=== PATIENT | male | born 1975 | race Caucasian/White ===

== ENCOUNTER 2020-07-18 08:58 | Emergency (ER) | payer BC, SELFPAY ==
[2020-07-18 09:23] VITALS: BP 122/76; PULSE 64; RESP 16; TEMP 36.8; O2SAT 98; BMI 31.6
--- NOTE | 2020-07-18 09:27 | HMH.EDUTC ---
[facility] [place] Disposition Clinical Impression: Encounter for laboratory testing for COVID-19 virus Sinusitis Qualifiers: Sinusitis location: unspecified location Chronicity: unspecified Qualified Code(s): J32.9 - Chronic sinusitis, unspecified Disposition: Home, Self-Care Condition on Discharge: Good Instructions: Sinusitis, DI for Sinusitis, Methylprednisolone, Azithromycin, Preventing the Spread of Coronavirus Discharge Instructions Additional Instructions: *Monitor Temp, Over the counter Motrin or Tylenol as directed/as needed Tylenol every 4 hours and Motrin every 6 hours (as long as your family doctor has told you that you can take it) for fever or pain. and straight to ER if unable to lower temp less than 101.0 after medication given *Warm salt water gargles may help to soothe the throat *Throat Lozenges *Warm fluids like tea with honey may help to soothe the throat *Sleep elevated *Humidifier/Vaporizer *Flonase 2 sprays in each nostril daily but be aware that it may take 2-3 days before you notice improvement Follow up IMMEDIATELY for new or worsening symptoms or no Noticeable improvement over the next 48-72 hours. 911 for difficulty breathing or swallowing You was tested for today for COVID19 your test result should be back later this evening or tomorrow, you may call back later this evening or tomorrow to see if your test results are back and the result You was given a handout with instructions for Self Quarantine and Self isolation for while you wait on test results and what to do if they are positive Prescriptions: Fluticasone Propionate [Flonase 50mcg nasal spray 16gm] 1 spr NS DAILY #1 bottle Transmission Status: Received by Next audience methylPREDNISolone [Medrol 4mg tab] 4 mg PO DIRECTED #21 tab Transmission Status: Received by Next audience Azithromycin [Z-Xu 250mg Tab] 250 mg PO DIRECTED #6 tab Transmission Status: Received by Next audience Referrals: Karen Barr [Primary Care Provider] - As needed Forms: Work/School Release Medical Decision Making - Bassem Inquiry Pt receiving controlled substance: No Bassem was queried for this patient: No Vital Signs: 07/18/20 09:23 07/18/20 09:43 Temperature 98.2 F 98.2 F Temperature Source Oral Pulse Rate 64 Pulse Rate [Radial] 64 Respiratory Rate 16 16 Blood Pressure 122/76 Blood Pressure [Right Arm] 122/76 Blood Pressure Mean [Right Arm] 91 Blood Pressure Source [Right Arm] Automatic Cuff Blood Pressure Position [Right Arm] Sitting 02 Sat by Pulse Oximetry 98 Oxygen Delivery Method Room Air - Lab Data Lab results reviewed: Yes: I reviewed the patient's lab results. Lab Results 07/18/20 09:28: Influenza Type A Ag Negative, Influenza Type B Ag Negative Orders (Tests/Meds): ORDERS Category Date Time Status Covid-19 Nasal PCR ([facility]) Routine Lab 07/18/20 09:15 Received [facility] [place] HPI - General Stated complaint: covid test Time Seen by Provider: 07/18/20 09:27 Mode of Arrival: Ambulatory Source of Information: Patient Limitations: No Limitations Description of Symptoms (Recalled from Triage Doc. by RN): COVID- Sat NOBLE started, swimmy headed, hot flashes, body aches, SOB. HEENT Symptoms (Recalled from RN notes): Yes Resp Symptoms (Recalled from RN notes): No Skin Symptoms (Recalled from RN notes): No MS Symptoms (Recalled from RN notes): No Functional Status (Recalled from RN notes): wnl - History of Present Illness Provider Complaint: Patient states that he started getting sick on Saturday State that he struck with headache on Saturday with pressure like feeling behind his eyes, headache, body aches and chills States that he had some nausea over the weekend but no vomiting and today he felt like he couldnt get a good breath. States that when he leans over he has pressure like feeling in his sinuses and makes his head feel swimmy - Related Data Previous Rx's Medication Instructions Recorded
[2020-07-18 09:35] LABS: UTC Influenza A Antigen Negative (Negative)
[2020-07-18 09:37] LABS: UTC Influenza B Antigen Negative (Negative)
[2020-07-18 09:43] VITALS: BP 122/76; PULSE 64; RESP 16; TEMP 36.8; O2SAT 98
== END 2020-07-18 09:46 | disposition home or self-care (01) ==
PROVIDERS: Emergency Provider Nurse Practitioner; PCP Nurse Practitioner Family
DX: Z20.828 Contact with and (suspected) exposure to other viral communicable diseases (principal); J32.9 Chronic sinusitis, unspecified; F17.210 Nicotine dependence, cigarettes, uncomplicated
CPT/HCPCS: 87804; 99201; U0003

== ENCOUNTER 2020-09-18 13:50 | Emergency (ER) | payer SELFPAY ==
[2020-09-18 15:28] VITALS: BP 124/70; PULSE 70; RESP 18; TEMP 36.7; O2SAT 98; BMI 32.5
--- NOTE | 2020-09-18 16:05 | HMH.EDUTC ---
[facility] [place] Disposition Clinical Impression: Low back pain Qualifiers: Chronicity: unspecified Back pain laterality: right Sciatica presence: without sciatica Qualified Code(s): M54.5 - Low back pain Disposition: Home, Self-Care Condition on Discharge: Good Instructions: Low Back Pain, DI for Low Back Pain, DI for Muscle Spasm Additional Instructions: *Etodolac kaushik 6 hours with meal as needed for pain/inflammation *Remember you had a Toradol shot in the clinic today, which is similar to Etodolac do not start until late tonight around 12am *Not additional anti-inflammatory like motrin, aleve, advil with the above amount of Etodolac. You can still take Tylenol every 4 hours as needed if you need something else for pain *Ice 20 minutes every 2 hours for the first 48 hours after the initial injury followed by moist heat every 20 minutes 3-4 times a day to affected area *Muscle relaxer every 8 hours as needed for muscle spasms but remember, it WILL cause drowsiness You cannot take it and drive, operate machinery or care for small children. *Keep this area active, no movement leads to more stiffness, However take it easy and avoid heavy lifting pushing or pulling *Follow up with you family doctor if no improvement for further treatment Prescriptions: Etodolac [Etodolac 200mg Cap*] 200 mg PO Q6H PRN #20 cap PRN Reason: Moderate Pain Transmission Status: Received by [facility] #[id number] Cyclobenzaprine HCl [Flexeril 10mg tablet] 10 mg PO TID PRN #15 tab PRN Reason: Muscle Spasm Transmission Status: Received by [facility] #[id number] Referrals: Karen Barr [Primary Care Provider] - As needed Forms: Work/School Release Time of Disposition: 16:28 Medical Decision Making - Bassem Inquiry Pt receiving controlled substance: No Bassem was queried for this patient: No Vital Signs: 09/18/20 15:28 Temperature 98.0 F Temperature Source Oral Pulse Rate [Left Radial] 70 Respiratory Rate 18 Blood Pressure [Left Arm] 124/70 Blood Pressure Mean [Left Arm] 88 Blood Pressure Source [Left Arm] Manual Cuff/ Doppler Blood Pressure Position [Left Arm] Sitting 02 Sat by Pulse Oximetry 98 Oxygen Delivery Method Room Air Orders (Tests/Meds): ED MEDICATIONS Discontinued Medications Generic Name Dose Route Start Last Admin Trade Name Lew PRN Reason Stop Dose Admin Ketorolac Tromethamine 60 mg 09/18/20 16:06 09/18/20 16:10 Ketorolac 60mg/2ml Vial IM 09/18/20 16:07 60 mg ONCE ONE Administration Methylprednisolone Sodium Succinate 125 mg 09/18/20 16:06 09/18/20 16:10 Methylprednisolone Sod Succ 125mg Vial IM 09/18/20 16:07 125 mg ONCE ONE Administration Medical Decision Narrative: Discussed with patient and recommended Rib xray and patient declined states that pain is not in ribs feels like spasms in his right lower back area with palpable spasm noted States that he will follow up with his PCP if he starts having pain in ribs. Patient reports that pain is much improved after medication [facility] [place] HPI - General Stated complaint: back pain Time Seen by Provider: 09/18/20 16:05 Mode of Arrival: Ambulatory Source of Information: Patient Limitations: No Limitations Description of Symptoms (Recalled from Triage Doc. by RN): Pt c/o muscular pain in R flank area, pt reports pain began this morning, no known injury. Pt reports pain is intermittent in nature, states he feels like his muscles are all knotted up. HEENT Symptoms (Recalled from RN notes): No Resp Symptoms (Recalled from RN notes): No Skin Symptoms (Recalled from RN notes): No MS Symptoms (Recalled from RN notes): Yes (c/o pain on R side of back) Functional Status (Recalled from RN notes): n/a - History of Present Illness Provider Complaint: Patient states that he has been having spasm like pain off and off in his right lower back for the last couple of days on and off States that he sneezed earlier and felt something juan c his right lower b
[2020-09-18 16:31] VITALS: BP 124/70; PULSE 70; RESP 18; TEMP 36.7; O2SAT 98
== END 2020-09-18 16:35 | disposition home or self-care (01) ==
PROVIDERS: Emergency Provider Nurse Practitioner; PCP Nurse Practitioner Family
DX: M54.5 Low back pain (principal)
CPT/HCPCS: 96372; 99202; G0463

== ENCOUNTER → 2021-01-06 14:26 | Outpatient (CLI) | payer SELFPAY ==
--- NOTE | 2021-01-06 14:31 | XR_ITS ---
PROCEDURE: XR WRIST LT MIN 3V CLINICAL INDICATION: LT wrist pain COMPARISON: No exams were available for comparison FINDINGS: No fracture or dislocation. No lytic or blastic change. There is normal mineralization. The joint spaces are well-preserved. No significant degenerative/arthritic changes. No erosive changes evident. Other findings:None. IMPRESSION: No acute findings. Dictated by: Quinton Wren MD 01/06/2021 14:56 Quinton Wren MD in [place] 01/06/2021 14:56
--- NOTE | 2021-01-06 14:31 | XR_ITS ---
PROCEDURE: XR WRIST RT MIN 3V CLINICAL INDICATION: RT wrist pain COMPARISON: No exams were available for comparison FINDINGS: No fracture or dislocation. No lytic or blastic change. There is normal mineralization. The joint spaces are well-preserved. No significant degenerative/arthritic changes. No erosive changes evident. Other findings:None. IMPRESSION: No acute findings. Dictated by: Quinton Wren MD 01/06/2021 14:56 Quinton Wren MD in [place] 01/06/2021 14:56
== END ==
PROVIDERS: PCP Nurse Practitioner Family; Visit Provider Orthopaedic Surgery
DX: M25.531 Pain in right wrist (principal); M25.532 Pain in left wrist
CPT/HCPCS: 73110

== ENCOUNTER 2021-01-06 16:03 | Outpatient (RCR) | payer SELFPAY | END 2021-01-06 16:57 | disposition home or self-care (01) | LOC: OT 16:03 | PROVIDERS: Visit Provider Orthopaedic Surgery | DX: G56.03 Carpal tunnel syndrome, bilateral upper limbs (principal) | CPT/HCPCS: 97763 ==

== ENCOUNTER 2021-01-26 10:19 | Emergency (ER) | payer OTHER, SELFPAY ==
--- NOTE | 2021-01-26 10:28 | XR_ITS ---
PROCEDURE: XR FINGER RT MIN 2V CLINICAL INDICATION: crush injury middle finger COMPARISON: No exams were available for comparison FINDINGS: Avulsion fracture involves the tip and radial aspect of the distal phalanx of the 3rd finger. The fracture fragment measures 7 x 3 mm and is displaced distally by 2 mm. There also appears to be a soft tissue defect at the nail bed distally IMPRESSION: Avulsion fracture tuft of the distal phalanx of the middle finger Dictated by: Quinton Wren MD 01/26/2021 11:00 Quinton Wren MD in [place] 01/26/2021 11:00
--- NOTE | 2021-01-26 10:28 | HMH.EDUPEXT ---
ED Disposition Clinical Impression: Finger injury Qualifiers: Encounter type: initial encounter Laterality: right Qualified Code(s): S69.91XA - Unspecified injury of right wrist, hand and finger(s), initial encounter Phalanx, distal fracture of finger Qualifiers: Encounter type: initial encounter Finger: middle finger Fracture type: open Fracture alignment: displaced Laterality: right Qualified Code(s): S62.632B - Displaced fracture of distal phalanx of right middle finger, initial encounter for open fracture Disposition: Home, Self-Care Condition on Discharge: Good Instructions: DI for Laceration Repair, DI for Finger Fracture Additional Instructions: Return to the emergency department for fever, increasing pain, foul-smelling drainage from the wound, decreased sensation, other acute new concerns. Keep hand elevated to decrease pain and swelling. Prescriptions: cephALEXin [cephALEXin 500mg capsule*] 500 mg PO QID 5 Days #20 cap Transmission Status: Pending to [facility] #[id number] Hydrocodone/Acetaminophen [Hydrocodone-Acetamin 5-325 mg] 1 each PO Q4-6H PRN #10 tab PRN Reason: pain Transmission Status: Sent to [facility] #[id number] Referrals: Karen Barr [Primary Care Provider] - 3 days Mirta Sotelo MD [Physician] - 3 days - Critical Care Critical Care Time: No Attestation: On , the high probability of a clinically significant, sudden or life threatening deterioration of the following system(s) required my full and direct attention, intervention and personal management. The time I documented below is in addition to time spent performing reported procedures but includes the following listed in this critical care notation. Medical Decision Making - Medical Records Medical records reviewed: Yes: I reviewed the patient's medical records. - Bassem Inquiry Pt receiving controlled substance: Yes Bassem was queried for this patient: No Risks and benefits of using a controlled substance: were discussed with pt by me Vital Signs: 01/26/21 10:29 Temperature 98.0 F Temperature Source Oral Pulse Rate [Right Radial] 74 Respiratory Rate 20 Blood Pressure [Right Arm] 120/83 Blood Pressure Mean [Right Arm] 95 02 Sat by Pulse Oximetry 100 Oxygen Delivery Method Room Air Orders (Tests/Meds): ED MEDICATIONS Discontinued Medications Generic Name Dose Route Start Last Admin Trade Name Freq PRN Reason Stop Dose Admin Cephalexin HCl 500 mg 01/26/21 10:56 01/26/21 11:04 Cephalexin 500mg Capsule PO 01/26/21 10:57 500 mg ONCE ONE Administration Protocol Tetanus/Reduced Diphtheria/Acell Pertussis 0.5 ml 01/26/21 10:28 01/26/21 11:00 Tet/Diphth/Pert-Adult 0.5ml Syringe IM 01/26/21 10:29 0.5 ml .ONCE ONE Administration - Radiology Data #1 Image(s): Finger(s)/Thumb Image Reviewed: Yes I reviewed the patient's radiology results, Yes I reviewed the patient's radiology image Distal phalanx fracture with lateral nailbed injury Medical Decision Narrative: Finger with no subungual hematoma, and nail completely intact. Lateral nailbed margin repaired with nylon. Nail firmly seated with some maceration under the nail. Distal phalanx is well approximated with the one nylon and intact nail. Because of this and no significant subungual hematoma, I would not remove the nail at this time. Tetanus was updated and patient was given Keflex here. Will discharge home with prescription for Keflex and Lortab, advised follow-up with orthopedic surgery early next week for reevaluation. Clean bandage was placed and patient was advised to leave this intact until follow-up with Ortho. Given strict return precautions. Upper Extremity HPI - General Stated Complaint: [id number] injury Rt mid finger Time Seen by Provider: 01/26/21 10:29 Mode of Arrival: Ambulatory Source of Information: Patient Limitations: No Limitations - History of Present Illness HPI narrative: Thi
[2021-01-26 10:29] VITALS: BP 120/83; PULSE 74; RESP 20; TEMP 36.7; O2SAT 100; BMI 32.3
--- NOTE | 2021-01-26 10:53 | PC.NURSE ---
Dr Sotelo paged
[2021-01-26 11:00] VITALS: BP 129/87
[2021-01-26 11:31] VITALS: BP 120/83; BP 134/95; PULSE 74; RESP 20; TEMP 36.7; O2SAT 100
--- NOTE | 2021-01-26 11:51 | PC.NURSE ---
Dr Link speaking to Dr Sotelo
== END 2021-01-26 12:11 | disposition home or self-care (01) ==
PROVIDERS: Emergency Provider Emergency Medicine; PCP Nurse Practitioner Family
DX: S62.632B Displaced fracture of distal phalanx of right middle finger, initial encounter for open fracture (principal); S67.21XA Crushing injury of right hand, initial encounter; S67.192A Crushing injury of right middle finger, initial encounter; W31.89XA Contact with other specified machinery, initial encounter; Y92.63 Factory as the place of occurrence of the external cause; Y99.0 Civilian activity done for income or pay; F17.290 Nicotine dependence, other tobacco product, uncomplicated; Z23 Encounter for immunization
CPT/HCPCS: 12001; 73140; 90715; 96372; 99282

== ENCOUNTER → 2021-03-07 12:45 | Outpatient (CLI) | payer OTHER, SELFPAY ==
--- NOTE | 2021-03-07 12:50 | XR_ITS ---
PROCEDURE: XR FINGER RT MIN 2V CLINICAL INDICATION: right 3rd digit Follow-up fracture COMPARISON: CR XR FINGER RT MIN 2V from 01/26/2021 FINDINGS: Avulsion fracture involves the tip of the distal phalanx of the 3rd digit. There is mild displacement the small fracture fragment distally by 2 mm. The the volar displacement has improved. The joint spaces are well-preserved. No significant degenerative/arthritic changes. No erosive changes evident. Other findings:None. IMPRESSION: No significant change minimally displaced fracture of the tuft of the distal phalanx of the 3rd digit Dictated by: Quinton Wren MD 03/08/2021 14:29 Quinton Wren MD in [place] 03/08/2021 14:29
== END ==
PROVIDERS: PCP Nurse Practitioner Family; Visit Provider Orthopaedic Surgery
DX: S62.639A Displaced fracture of distal phalanx of unspecified finger, initial encounter for closed fracture (principal)
CPT/HCPCS: 73140

== ENCOUNTER → 2021-04-18 13:18 | Outpatient (CLI) | payer OTHER, SELFPAY ==
--- NOTE | 2021-04-18 13:26 | XR_ITS ---
PROCEDURE: XR FINGER RT MIN 2V CLINICAL INDICATION: RT 3rd digit injury COMPARISON: CR XR FINGER RT MIN 2V from 01/26/2021 CR XR FINGER RT MIN 2V from 03/07/2021 FINDINGS: Avulsion fracture involves the tip of the distal phalanx of the 3rd digit with minimal separation of the fracture fragment not significantly changed. The joint spaces are well-preserved. No significant degenerative/arthritic changes. No erosive changes evident. Other findings:None. IMPRESSION: No change avulsion fracture tip of distal phalanx of the 3rd digit Dictated by: Quinton Wren MD 04/18/2021 14:30 Quinton Wren MD in [place] 04/18/2021 14:30
== END ==
PROVIDERS: PCP Nurse Practitioner Family; Visit Provider Orthopaedic Surgery
DX: S62.632A Displaced fracture of distal phalanx of right middle finger, initial encounter for closed fracture (principal); S69.91XA Unspecified injury of right wrist, hand and finger(s), initial encounter
CPT/HCPCS: 73140

== ENCOUNTER 2021-05-01 14:08 | Emergency (ER) | payer SELFPAY ==
--- NOTE | 2021-05-01 14:59 | HMH.EDUTC ---
[facility] [place] Clinical Impression: Viral syndrome, Exposure to COVID-19 virus Disposition: Home, Self-Care Condition on Discharge: Good Instructions: DI for Viral Syndrome, DI for COVID-19 (Suspected or Confirmed ), Preventing the Spread of Coronavirus Discharge Instructions Additional Instructions: Drink plenty of fluids. Take tylenol for pain or fever. Return if you begin to have difficulty breathing. Follow up with your regular doctor. GO TO THE ER FOR ANY WORSENING SYMPTOMS Quarantine until you know the results of your covid-19 test. If it is positive, the health department should call you and give you further instructions about your length of Quarantine and other things. Notify your school or workplace of your results and follow their instructions regarding return to work/school. Prescriptions: Ondansetron [Zofran 4mg ODT] 4 mg PO Q8HP PRN #12 tab.rapdis PRN Reason: Nausea Transmission Status: Received by [facility] #[id number] Referrals: Karen Barr [Primary Care Provider] - Forms: Work/School Release Time of Disposition: 15:04 Medical Decision Making - Medical Records Medical records reviewed: No: I reviewed the patient's medical records. - Bassem Inquiry Pt receiving controlled substance: No Vital Signs: 05/01/21 15:07 Temperature 98.3 F Temperature Source Oral Pulse Rate 75 Respiratory Rate 16 Blood Pressure 144/70 H Blood Pressure Source Automatic Cuff Blood Pressure Position Sitting Oxygen Delivery Method Room Air [facility] [place]PI - General Stated complaint: Covid test Time Seen by Provider: 05/01/21 14:59 - History of Present Illness Provider Complaint: He states that he has felt bad since yesterday. He has had a cough, head ache and nausea/diarrhea. He denies sore throat. He has worked with several people that have covid recently. His has similar symptoms at home, but she has not been tested for covid yet. - Related Data Previous Rx's Medication Instructions Recorded Ondansetron [Zofran 4mg ODT] 4 mg PO Q8HP PRN #12 tab.rapdis 05/01/21 Allergies Allergy/AdvReac Type Severity Reaction Status Date / Time No Known Allergies Allergy Verified 04/18/21 13:43 [facility] History - Hepatitis A Screen Attestation statement:: This patient has been screened for Hepatitis A risk factors. I have reviewed the patient's past medical history: Yes Laterality Cases: Left: Other (LT 3rd digit nail bed removal ) Other Surgeries: Yes: Cholecystectomy Fractures: Yes - Social History Smoking Status: Former smoker Tobacco Type: smokeless tobacco # Packs/Day (cigarettes): 0 Alcohol Intake: never Occupational Status: other Family Hx:: No significant family history ROS Obtained: Yes All systems reviewed & no additional complaints - Constitutional Constitutional: Reports system reviewed and no additional complaints, except as docu - Eyes Eyes: Reports system reviewed and no additional complaints, except as docu - ENT Ears, Nose, Mouth, and Throat: Reports system reviewed and no additional complaints, except as docu - Cardiovascular Cardiovascular: Reports system reviewed and no additional complaints, except as docu - Respiratory Respiratory: Reports system reviewed and no additional complaints, except as docu - Gastrointestinal Gastrointestingal: Reports: system reviewed and no additional complaints, except as docu Physical Exam - General General appearance: alert, in no apparent distress - Head Head exam: atraumatic, normocephalic, normal inspection - Eye Eye exam: Present: normal appearance, PERRL, EOMI - ENT ENT exam: Present: normal exam, normal oropharynx, mucous membranes moist, TM's normal bilaterally, normal external ear exam - Neck Neck exam: Present: normal inspection, full ROM, trachea midline. Absent: meningismus, lymphadenopathy - Chest Chest inspection: Present: normal inspection, symmetric chest wall rise
[2021-05-01 15:07] VITALS: BP 144/70; PULSE 75; RESP 16; TEMP 36.8; O2SAT 98
== END 2021-05-01 15:07 | disposition home or self-care (01) ==
PROVIDERS: Emergency Provider Nurse Practitioner Family; PCP Nurse Practitioner Family
DX: B34.9 Viral infection, unspecified (principal); Z20.822 Contact with and (suspected) exposure to COVID-19
CPT/HCPCS: 99202; G0463; U0003

== ENCOUNTER 2021-09-11 14:05 | Emergency (ER) | payer OTHER, SELFPAY ==
[2021-09-11 17:10] VITALS: BP 135/79; PULSE 64; RESP 19; TEMP 37.2; O2SAT 98; BMI 34.7
--- NOTE | 2021-09-11 17:29 | HMH.EDUTC ---
[facility] [place] Disposition Clinical Impression: URI (upper respiratory infection) Qualifiers: URI type: unspecified URI Qualified Code(s): J06.9 - Acute upper respiratory infection, unspecified Disposition: Home, Self-Care Condition on Discharge: Good Instructions: Sinusitis, DI for Cough -- Adult, DI for Fever (Symptom) -- Adult Additional Instructions: *Monitor Temp, Over the counter Motrin or Tylenol as directed/as needed Tylenol every 4 hours and Motrin every 6 hours (as long as your family doctor has told you that you can take it) for fever or pain. and straight to ER if unable to lower temp less than 101.0 after medication given *Warm salt water gargles may help to soothe the throat *Throat Lozenges *Warm fluids like tea with honey may help to soothe the throat *Sleep elevated *Humidifier/Vaporizer Follow up IMMEDIATELY for new or worsening symptoms or no Noticeable improvement over the next 48-72 hours. 911 for difficulty breathing or swallowing You were tested for today for COVID19 your test result should be back in the next 24-48 hours, you may Check your results on the [facility] My Health Portal if you have trouble logging on you may call You was given a handout with instructions for Self Quarantine and Self isolation for while you wait on test results and what to do if they are positive If you are positive the Health Dept will be contacting you also Make sure to take your Vitamins Vit. C Vit D and Zinc if you can take them Prescriptions: Benzonatate [Benzonatate 100mg cap] 100 mg PO Q8HP PRN #15 cap PRN Reason: Cough Transmission Status: Pending to [facility] #[id number] methylPREDNISolone [Medrol 4mg tab] 4 mg PO DIRECTED #21 tab Transmission Status: Pending to [facility] #[id number] Azithromycin [Z-Xu 250mg Tab] 250 mg PO DIRECTED #6 tab Transmission Status: Pending to [facility] #[id number] Referrals: Karen Barr [Primary Care Provider] - As needed Forms: Work/School Release Time of Disposition: 17:34 Medical Decision Making - Bassem Inquiry Pt receiving controlled substance: No Bassem was queried for this patient: No Vital Signs: 09/11/21 17:10 Temperature 99.0 F Temperature Source Oral Pulse Rate [Right Brachial] 64 Respiratory Rate 19 Blood Pressure [Left Arm] 135/79 Blood Pressure Mean [Left Arm] 97 Blood Pressure Source [Left Arm] Automatic Cuff Blood Pressure Position [Left Arm] Sitting 02 Sat by Pulse Oximetry 98 Oxygen Delivery Method Room Air - Lab Data Lab Results 09/11/21 16:59: Influenza Type A Ag Negative, Influenza Type B Ag Negative Orders (Tests/Meds): ORDERS Category Date Time Status Covid-19 Nasal PCR ([facility]) Routine Lab 09/11/21 16:56 Received [facility] [place] HPI - General Stated complaint: fever, chills, h/a, muscle/body aches, lightheaded Time Seen by Provider: 09/11/21 17:29 Mode of Arrival: Ambulatory Source of Information: Patient Limitations: No Limitations Description of Symptoms (Recalled from Triage Doc. by RN): PATIENT C/O BODY ACHES, HEADACHE AND FEVER X 2 DAYS HEENT Symptoms (Recalled from RN notes): Yes Resp Symptoms (Recalled from RN notes): No Skin Symptoms (Recalled from RN notes): No MS Symptoms (Recalled from RN notes): No Functional Status (Recalled from RN notes): WNL - History of Present Illness Provider Complaint: Patient states that he has been having sinus congestion and pressure for several days State that he has been having headaches, bodyaches and chills States that he ran a fever last night and today he was still not feeling well so he came in to get checked out - Related Data Previous Rx's Medication Instructions Recorded Ondansetron [Zofran 4mg ODT] 4 mg PO Q8HP PRN #12 tab.rapdis 05/01/21 Azithromycin [Z-Xu 250mg Tab] 250 mg PO DIRECTED #6 tab 09/11/21 Benzonatate [Benzonatate 100mg 100 mg PO Q8HP PRN #15 cap 09/11/21 cap] methylPREDNISolone [Medrol 4mg 4 mg PO DIRECTED #21 tab
[2021-09-11 17:30] LABS: UTC Influenza A Antigen Negative (Negative)
[2021-09-11 17:31] LABS: UTC Influenza B Antigen Negative (Negative)
[2021-09-11 17:39] VITALS: BP 135/79; PULSE 64; RESP 19; TEMP 37.2; O2SAT 98
== END 2021-09-11 17:44 | disposition home or self-care (01) ==
PROVIDERS: Emergency Provider Nurse Practitioner; PCP Nurse Practitioner Family
DX: J06.9 Acute upper respiratory infection, unspecified (principal); U07.1 COVID-19
CPT/HCPCS: 87804; 99202; C9803; G0463; U0003; U0005

== ENCOUNTER 2022-07-16 11:37 | Emergency (ER) | payer BC, SELFPAY ==
[2022-07-16 13:34] VITALS: BP 121/78; PULSE 71; RESP 18; TEMP 36.6; O2SAT 99; BMI 33.9
--- NOTE | 2022-07-16 13:44 | EXP.UTC ---
Discharge Plan Disposition Patient Disposition: Home, Self-Care Condition: Good Prescriptions Prescriptions: New azithromycin [Zithromax Z-Xu] 250 mg tablet See Rx Instructions .ROUTE .COMPLEX 5 Days Qty: 6 0RF Rx Instructions: For 250 mg dose pack: take 500 mg today (day 1), then 250 mg for 4 days (days 2-5) benzonatate 100 mg capsule 100 mg PO TID PRN (Reason: cough) Qty: 30 0RF methylprednisolone [Medrol (Xu)] 4 mg tablets,dose pack See Rx Instructions .Route .COMPLEX 6 Days Qty: 21 0RF Rx Instructions: taper pack; No Action ondansetron 4 MG tablet,disintegrating 4 mg PO Q8HP PRN (Reason: Nausea) Qty: 12 0RF azithromycin 250 MG tablet 250 mg PO DIRECTED Qty: 6 0RF Rx Instructions: Take two (2) tablets on day #1, then one (1) tablet day #2 thru #5 methylprednisolone 4 MG tablet 4 mg PO DIRECTED Qty: 21 0RF Rx Instructions: Take as directed on package instructions benzonatate 100 MG capsule 100 mg PO Q8HP PRN (Reason: Cough) Qty: 15 0RF Referrals Follow up/Referrals: Karen Barr [Primary Care Provider] - See instructions Activity Restrictions/Add. Instructions Additional Instructions/Restrictions: *Monitor Temp, Over the counter Motrin or Tylenol as directed/as needed Tylenol every 4 hours and Motrin every 6 hours (as long as your family doctor has told you that you can take it) for fever or pain. and straight to ER if unable to lower temp less than 101.0 after medication given *Warm salt water gargles may help to soothe the throat *Throat Lozenges? *Warm fluids like tea with honey may help to soothe the throat? *Sleep elevated *Humidifier/Vaporizer Your throat swab was sent for culture. Those results are typically sent to your primary care. Be sure to follow up in 2-3 days with your family doctor/primary care physician if no improvement so they can review those result and treat if necessary. If you don?t have a primary care doctor, I recommend you get one but in the mean time, you will have to return to a walk in clinic Follow up IMMEDIATELY for new or worsening symptoms or no Noticeable improvement over the next 48-72 hours. 911 for difficulty breathing or swallowing You were tested for today for COVID19 your test result should be back in the next 24-48 hours, you may check your results on the [facility] My Health Portal Clinical Impressions Clinical Impression: URI (upper respiratory infection) Stand Alone Forms Stand Alone Forms: Work/School Release Instructions Patient Instructions: Sore Throat, DI for Sinusitis Discharge ED [place] Abbey [place] [facility] [place] General Stated complaint: Congestion,Cough,Fever,Sore throat Mode of Arrival: Ambulatory Source of Information: Patient Limitations: No Limitations Time Seen by Provider: 07/16/22 13:44 Description of Symptoms (Recalled from Triage Doc. by RN): PT TO [facility] WITH BODY ACHES, CHILLS, SINUS PRESSURE AND HEADACEH SINCE SATURDAY. 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
[2022-07-16 13:55] LABS: UTC Strep Screen (Rapid) Negative (Negative)
[2022-07-16 14:11] VITALS: BP 128/78; PULSE 71; RESP 18; TEMP 36.6; O2SAT 99
[2022-07-16 14:58] LABS: Adenovirus,PCR Not Detected (NotDetected); Bordetella Pertussis Not Detected (NotDetected); Chlamydophila Pneumoniae, PCR Not Detected (NotDetected); Coronavirus 19, PCR Not Detected (NotDetected); Coronavirus 229E Not Detected (NotDetected); Coronavirus NL63 Not Detected (NotDetected); Coronavirus OC43 Not Detected (NotDetected); Coronovirus HKU1,PCR Not Detected (NotDetected); Human Metapneumovirus Not Detected (NotDetected); Influenza AH1, 2009 Not Detected (NotDetected); Influenza AH1, PCR Not Detected (NotDetected); Influenza AH3,PCR Not Detected (NotDetected); Influenza B, PCR Not Detected (NotDetected); Mycoplasma Pneumoniae, PCR Not Detected (NotDetected); Parainfluenza 1, PCR Not Detected (NotDetected); Parainfluenza 2, PCR Not Detected (NotDetected); Parainfluenza 3, PCR Not Detected (NotDetected); Parainfluenza 4, PCR Not Detected (NotDetected); Respiratory Syncytial Virus Not Detected (NotDetected)
[2022-07-16 18:16] LABS: Influenza A, PCR Not Detected (NotDetected); Rhinovirus/Enterovirus Detected (NotDetected)
== END 2022-07-16 14:13 | disposition home or self-care (01) ==
PROVIDERS: Emergency Provider Nurse Practitioner; PCP Nurse Practitioner Family
DX: J06.9 Acute upper respiratory infection, unspecified (principal)
CPT/HCPCS: 87581; 87632; 87798; 87880; 99212; C9803; G0463; U0003; U0005

== ENCOUNTER 2022-12-19 08:46 | Emergency (ER) | payer BC, SELFPAY ==
--- NOTE | 2022-12-19 08:57 | EXP.UTC ---
Discharge Plan Disposition Patient Disposition: Home, Self-Care Condition: Good Prescriptions Prescriptions: New ondansetron 4 mg Tablet,Disintegrating 4 mg PO Q8H PRN (Reason: Nausea) Qty: 12 0RF Discontinued azithromycin 250 MG tablet 250 mg PO DIRECTED Qty: 6 0RF Rx Instructions: Take two (2) tablets on day #1, then one (1) tablet day #2 thru #5 methylprednisolone 4 MG tablet 4 mg PO DIRECTED Qty: 21 0RF Rx Instructions: Take as directed on package instructions benzonatate 100 MG capsule 100 mg PO Q8HP PRN (Reason: Cough) Qty: 15 0RF azithromycin [Zithromax Z-Xu] 250 mg tablet See Rx Instructions .ROUTE .COMPLEX 5 Days Qty: 6 0RF Rx Instructions: For 250 mg dose pack: take 500 mg today (day 1), then 250 mg for 4 days (days 2-5) benzonatate 100 mg capsule 100 mg PO TID PRN (Reason: cough) Qty: 30 0RF methylprednisolone [Medrol (Xu)] 4 mg tablets,dose pack See Rx Instructions .Route .COMPLEX 6 Days Qty: 21 0RF Rx Instructions: taper pack; Referrals Follow up/Referrals: Karen Barr [Primary Care Provider] - See instructions Activity Restrictions/Add. Instructions Additional Instructions/Restrictions: Drink plenty of fluids. Take tylenol or ibuprofen for pain or fever. Take the zofran as directed for nausea/vomiting. Drink electrolyte sports drinks like pedialyte or gatorade to replace the electrolytes you are losing through your diarrhea. Follow up with your regular doctor. GO TO THE ER FOR ANY WORSENING SYMPTOMS Clinical Impressions Clinical Impression: Sinusitis, Viral syndrome Stand Alone Forms Stand Alone Forms: Work/School Release Instructions Patient Instructions: Sinusitis, DI for Sinusitis, DI for Viral Syndrome Discharge ED Provider: Ned Combs [facility] General Stated complaint: Vomitting,Diarrhea,Headache Time Seen by Provider: 12/19/22 08:57 History of Present Illness Provider Complaint: He states that for the past 2 days he has had n/v/d. He denies abdominal pain. Since last night he has had a head ache that is worse when he stands up or goes from lying to sitting. Related Data Previous Rx's Medication Instructions Recorded ondansetron 4 mg disintegrating 4 mg PO Q8H PRN Nausea #12 tabs 12/19/22 tablet Allergies Allergy/AdvReac Type Severity Reaction Status Date / Time No Known Allergies Allergy Verified 04/18/21 13:43 PFSH [facility] Disclaimer: The information contained in this section may have been updated after the patient was seen, as this information can be updated by other users. Social History Smoking Status: Former smoker second hand exposure: Yes alcohol intake: never current occupational status: other Travel in the last 8 weeks: None ROS Obtained: Yes All systems reviewed & no additional complaints except as documented Constitutional Constitutional: Denies chills, Denies fever(s) and Reports poor appetite ENT Ears, Nose, Mouth, and Throat: Denies dizziness and Denies sore throat Cardiovascular Cardiovascular: Denies dyspnea Respiratory Respiratory: Denies chest congestion, Denies cough and Denies dyspnea Gastrointestinal Gastrointestingal: Reports cramping, diarrhea, nausea and vomiting; Denies abdominal pain, hematemesis or hematochezia Genitourinary Male Genitourinary: Denies hematuria, Denies urinary frequency, Denies urinary hesitancy, Denies urinary incontinence and Denies urinary urgency Musculoskeletal Musculoskeletal: Denies arthralgias Integumentary/Breasts Skin/Breast: Denies rash Neurologic Neurologic: Denies dizziness Physical Exam General General appearance: alert and in no apparent distress Head Head exam: atraumatic and normocephalic Eye Eye exam: Present normal appearance, PERRL and EOMI ENT ENT exam: Present normal exam, normal oropharynx, mucous membranes moist, TM's normal bila
[2022-12-19 09:00] VITALS: BP 132/69; PULSE 76; RESP 18; TEMP 36.6; O2SAT 97; BMI 33.2
[2022-12-19 09:16] LABS: UTC Influenza A Antigen Negative (Negative); UTC Influenza B Antigen Negative (Negative)
[2022-12-19 09:32] VITALS: BP 132/69; PULSE 76; RESP 18; TEMP 36.6; O2SAT 97
== END 2022-12-19 10:41 | disposition home or self-care (01) ==
PROVIDERS: Emergency Provider Nurse Practitioner Family; PCP Nurse Practitioner Family
DX: R11.2 Nausea with vomiting, unspecified (principal); R19.7 Diarrhea, unspecified; J01.90 Acute sinusitis, unspecified; R51.9 Headache, unspecified; Z87.891 Personal history of nicotine dependence; B34.9 Viral infection, unspecified
CPT/HCPCS: 87804; 96360; 99212; 99214; G0463

== ENCOUNTER 2023-01-26 14:16 | Emergency (ER) | payer BC, SELFPAY ==
[2023-01-26 14:42] VITALS: BP 131/80; PULSE 70; RESP 16; TEMP 36.8; O2SAT 96; BMI 35.2
[2023-01-26 14:48] LABS: UTC Strep Screen (Rapid) Negative (Negative)
[2023-01-26 15:22] VITALS: BP 128/78; PULSE 72; RESP 16; TEMP 36.7; O2SAT 98
--- NOTE | 2023-01-26 15:22 | EXP.UTC ---
Discharge Plan Disposition Patient Disposition: Home, Self-Care Condition: Good Prescriptions Prescriptions: New loratadine 10 mg tablet 10 mg PO DAILY Qty: 30 1RF Debrox 6.5 % drops 5 drp otic (ear) Q12H 4 Days Qty: 15 0RF Referrals Follow up/Referrals: Karen Barr [Primary Care Provider] - See instructions Clinical Impressions Clinical Impression: Impacted cerumen of left ear Pharyngitis Qualifiers: Pharyngitis/tonsillitis etiology: unspecified etiology Qualified Code(s): J02.9 - Acute pharyngitis, unspecified Instructions Patient Instructions: DI for Cerumen Impaction, DI for Viral Pharyngitis Discharge ED Provider: Bibi Flores [facility] General Stated complaint: Congestion,r side of throat sore ,L earache Mode of Arrival: Ambulatory Source of Information: Patient Limitations: No Limitations Time Seen by Provider: 01/26/23 15:22 Description of Symptoms (Recalled from Triage Doc. by RN): pt states he has had a sore throat on the R side, sinus congestion, and L ear feels clogged since this morning HEENT Symptoms (Recalled from RN notes): Yes Resp Symptoms (Recalled from RN notes): Yes Skin Symptoms (Recalled from RN notes): No MS Symptoms (Recalled from RN notes): No Functional Status (Recalled from RN notes): wnl History of Present Illness Provider Complaint: Pt states that his left ear feels clogged and the right side of his throat hurts. 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 He wishes to be tested for strep. Related Data Previous Rx's Medication Instructions Recorded carbamide peroxide 6.5 % ear drops 5 drp otic (ear) Q12H 4 days #15 mL 01/26/23 (Debrox) loratadine 10 mg tablet 10 mg PO DAILY #30 tabs 01/26/23 Allergies Allergy/AdvReac Type Severity Reaction Status Date / Time No Known Allergies Allergy Verified 04/18/21 13:43 Worker's Comp Is this a Worker's Comp case?: No Is this an [facility] Worker's Comp?: No Is this a [place] Worker's Comp?: No [facility] Disclaimer: The information contained in this section may have been updated after the patient was seen, as this information can be updated by other users. Social History Smoking Status: Former smoker second hand exposure: Yes alcohol intake: never current occupational status: other Travel in the last 8 weeks: None ROS Obtained: Yes All systems reviewed & no additional complaints except as documented Constitutional Constitutional: Reports system reviewed and no additional complaints, except as documented Eyes Eyes: Reports system reviewed and no additional complaints, except as documented ENT Ears, Nose, Mouth, and Throat: Reports system reviewed and no additional complaints, except as documented, Reports otalgia, Reports odynophagia, Reports post nasal drip and Reports sore throat Cardiovascular Cardiovascular: Reports system reviewed and no additional complaints, except as documented Respiratory Respiratory: Reports system reviewed and no additional complaints, except as documented Gastrointestinal Gastrointestingal: Reports system reviewed and no additional complaints, except as documented and odynophagia Genitourinary Male Genitourinary: Reports system reviewed and no additional complaints, except as documented Musculoskeletal Musculoskeletal: Reports system reviewed and no additional complaints, except as documented Integumentary/Breasts Skin/Breast: Reports system reviewed and no additional complaints, except as documented Neurologic Neurologic: Reports system reviewed and no additional complaints, except as documented Endocrine Endocrine: Reports system reviewed and no additional complaints, except as documented Hematologic/Lymphatic Henatologic/Lymphatic: Reports system reviewed and no additional complaints, except as documented Allergic/Immunologic Allergic/Immunologic: Reports system reviewed and no additional
== END 2023-01-26 15:38 | disposition home or self-care (01) ==
PROVIDERS: Emergency Provider Nurse Practitioner Family; PCP Nurse Practitioner Family
DX: H61.22 Impacted cerumen, left ear (principal); J02.9 Acute pharyngitis, unspecified; Z87.891 Personal history of nicotine dependence
CPT/HCPCS: 87880; 99212; 99214; G0463

== ENCOUNTER 2023-02-02 09:24 | Emergency (ER) | payer BC, SELFPAY ==
[2023-02-02 09:30] VITALS: BP 115/87; PULSE 71; RESP 19; TEMP 36.7; O2SAT 98; BMI 33.1
--- NOTE | 2023-02-02 10:13 | EXP.UTC ---
Discharge Plan Disposition Patient Disposition: Home, Self-Care Condition: Good Prescriptions Prescriptions: New azithromycin [azithromycin] 250 mg tablet 250 mg PO DIRECTED Qty: 6 0RF Rx Instructions: Take two (2) tablets on day #1, then one (1) tablet day #2 thru #5 fluticasone propionate [fluticasone propionate] 50 mcg/actuation spray,suspension 1 spray intranasal DAILY Qty: 9.9 0RF No Action loratadine 10 mg tablet 10 mg PO DAILY Referrals Follow up/Referrals: Karen Barr [Primary Care Provider] - See instructions Activity Restrictions/Add. Instructions Additional Instructions/Restrictions: Start antibiotic patient to take as ordered for a full length of time even if you feel better. Sinus infections do not get better overnight. It may take 2-3 days to notice much improvement so be sure to use conservative measures as discussed for symptoms. Flonase 1 spray each nostril daily to help with nasal congestion, sinus and ear pressure/information Increase fluids Humidifier/vaporizer as needed Tylenol and ibuprofen as needed for fever or pain. If symptoms do not improve or get worse return or be seen in the ER Follow-up with primary care this week Clinical Impressions Clinical Impression: Sinusitis Instructions Patient Instructions: DI for Sinusitis Discharge ED Provider: Poly ([facility] [place] HPI General Stated complaint: Congestion, drainage, chest congestion Source of Information: Patient Time Seen by Provider: 02/02/23 10:13 Description of Symptoms (Recalled from Triage Doc. by RN): pt states he was seen here last week for cough and nasal congestion and is now getting worse. States he is worried the congestion has moved to his chest. HEENT Symptoms (Recalled from RN notes): Yes Resp Symptoms (Recalled from RN notes): Yes Skin Symptoms (Recalled from RN notes): No MS Symptoms (Recalled from RN notes): No Functional Status (Recalled from RN notes): wnl History of Present Illness Provider Complaint: 47 yr old male presents for cough and congestion. pt states he was seen last week and placed on allergy med but he is feeling worse. pt states now he is having bright green/yellow nasal drainage and dark sputum. pt states he has sinus tenderness and pressure behind his eyes. Related Data Home Medications Medication Instructions Recorded Confirmed loratadine 10 mg tablet 10 mg PO DAILY allergies 02/02/23 02/02/23 Previous Rx's Medication Instructions Recorded azithromycin 250 mg tablet 250 mg PO DIRECTED #6 tabs 02/02/23 fluticasone propionate 50 1 spray intranasal DAILY #9.9 mL 02/02/23 mcg/actuation nasal spray,suspension Allergies Allergy/AdvReac Type Severity Reaction Status Date / Time No Known Allergies Allergy Verified 02/02/23 09:48 Worker's Comp Is this a Worker's Comp case?: [facility] Disclaimer: The information contained in this section may have been updated after the patient was seen, as this information can be updated by other users. Social History , [employer]) Smoking Status: Former smoker second hand exposure: Yes alcohol intake: never current occupational status: other Travel in the last 8 weeks: None ROS Obtained: Yes All systems reviewed & no additional complaints except as documented Constitutional Constitutional: Reports system reviewed and no additional complaints, except as documented and Reports as per HPI Eyes Eyes: Reports system reviewed and no additional complaints, except as documented ENT Ears, Nose, Mouth, and Throat: Reports system reviewed and no additional complaints, except as documented, Reports as per HPI, Reports nasal congestion, Reports nasal discharge, Reports post nasal drip, Reports sinus pain and Reports sinus pressure Cardiovascular Cardiovascular: Reports system reviewed and no additional complaints, except as documented Respiratory Respiratory
[2023-02-02 10:26] VITALS: BP 115/87; PULSE 71; RESP 19; TEMP 36.6; O2SAT 98
== END 2023-02-02 10:26 | disposition home or self-care (01) ==
PROVIDERS: Emergency Provider Nurse Practitioner Family; PCP Nurse Practitioner Family
DX: J01.90 Acute sinusitis, unspecified (principal); Z87.891 Personal history of nicotine dependence
CPT/HCPCS: 99212; 99214; G0463

== ENCOUNTER 2023-09-25 10:14 | Emergency (ER) | payer BC, SELFPAY ==
[2023-09-25 10:45] VITALS: BP 130/85; PULSE 68; RESP 18; TEMP 37.1; O2SAT 96; BMI 35.2
[2023-09-25 10:53] LABS: UTC Strep Screen (Rapid) Negative (Negative)
--- NOTE | 2023-09-25 11:03 | ED_ITS ---
Discharge Plan Disposition Patient Disposition: Home, Self-Care Condition: Good Prescriptions Prescriptions: New amoxicillin [amoxicillin] 875 mg tablet 875 mg PO Q12H Qty: 20 0RF methylprednisolone 4 mg Tablets,Dose Pack 4 mg PO DIRECTED 6 Days Qty: 21 0RF Rx Instructions: Take 1 pack as directed for 6 days No Action loratadine 10 mg tablet 10 mg PO DAILY fluticasone propionate [fluticasone propionate] 50 mcg/actuation spray,suspension 1 spray intranasal DAILY Qty: 9.9 0RF Referrals Follow up/Referrals: Rani Hatfield [Primary Care Provider] - See instructions Activity Restrictions/Add. Instructions Additional Instructions/Restrictions: Drink plenty of fluids. Take tylenol or ibuprofen for pain or fever. Take the medications as directed. Follow up with your regular doctor. GO TO THE ER FOR ANY WORSENING SYMPTOMS Clinical Impressions Clinical Impression: Pharyngitis Stand Alone Forms Stand Alone Forms: Work/School Release Instructions Patient Instructions: Strep Throat, DI for Strep Throat Discharge ED Provider: Ned Combs [facility] [place] General Stated complaint: sore throat Mode of Arrival: Ambulatory Source of Information: Patient Limitations: No Limitations Time Seen by Provider: 09/25/23 11:02 Description of Symptoms (Recalled from Triage Doc. by RN): Pt's symptoms are strep throat, cough, and chest congestion. HEENT Symptoms (Recalled from RN notes): Yes Resp Symptoms (Recalled from RN notes): No Skin Symptoms (Recalled from RN notes): No MS Symptoms (Recalled from RN notes): No Functional Status (Recalled from RN notes): n/a History of Present Illness Provider Complaint: He states that he has had sore throat and malaise for the past 3 days. Related Data Home Medications Medication Instructions Recorded Confirmed loratadine 10 mg tablet 10 mg PO DAILY allergies 02/02/23 09/25/23 Previous Rx's Medication Instructions Recorded fluticasone propionate 50 1 spray intranasal DAILY #9.9 mL 02/02/23 mcg/actuation nasal spray,suspension amoxicillin 875 mg tablet 875 mg PO Q12H #20 tabs 09/25/23 methylprednisolone 4 mg tablets in 4 mg PO DIRECTED 6 days #21 tabs 09/25/23 a dose pack Allergies Allergy/AdvReac Type Severity Reaction Status Date / Time No Known Allergies Allergy Verified 09/25/23 10:53 Worker's Comp Is this a Worker's Comp case?: No [facility] Disclaimer: The information contained in this section may have been updated after the patient was seen, as this information can be updated by other users. Social History Smoking Status: Former smoker tobacco type: smokeless tobacco second hand exposure: Yes alcohol intake: never current occupational status: other Travel in the last 8 weeks: None ROS Obtained: Yes All systems reviewed & no additional complaints except as documented Constitutional Constitutional: Reports chills and Reports fever(s) Eyes Eyes: Denies eye discharge ENT Ears, Nose, Mouth, and Throat: Reports as per HPI Cardiovascular Cardiovascular: Denies chest pain Respiratory Respiratory: Denies chest congestion and Reports cough Gastrointestinal Gastrointestingal: Reports nausea; Denies abdominal pain, constipation, cramping, diarrhea or vomiting Musculoskeletal Musculoskeletal: Denies arthralgias Integumentary/Breasts Skin/Breast: Denies rash Neurologic Neurologic: Denies paresthesias Physical Exam General General appearance: alert and in no apparent distress Head Head exam: atraumatic, normocephalic and normal inspection Eye Eye exam: Present normal appearance, PERRL and EOMI ENT ENT exam: Present mucous membranes moist and normal external ear exam Expanded ENT Exam TM/Canal exam: Bilateral TM: erythema and bulging Nose exam: Absent sinus tenderness Mouth exam: Present normal external inspection; Absent drooling Teeth exam: Present normal inspection Throat exam: Present tonsillar erythema, tonsillomegaly and tonsillar exudate Neck Neck exam: Present normal inspection, full ROM and trachea midline; Absent tenderness, meningismus or lymphadenopathy Chest Chest inspection: Present normal inspection and symmetric chest wall rise; Absent tenderness Respiratory Respiratory exam: Present normal lung sounds bilaterally; Absent respiratory distress, wheezes or stridor Cardiovascular Cardiovascular exam: Present regular rate and normal rhythm; Absent systolic murmur or diastolic murmur Abdominal Exam Abdominal exam: Present soft and normal bowel sounds; Absent distention, tenderness, guarding, rebound or rigidity Extremities Exam Extremities exam: Present normal inspection and normal capillary refill; Absent calf tenderness Back Exam Back exam: Present normal inspection and full ROM; Absent tenderness, CVA tenderness (R) or CVA tenderness (L) Neurological Exam Neurological exam: Present alert, oriented X3 and CN II-XII intact Psychiatric Psychiatric exam: Present normal affect and normal mood Skin Skin exam: Present warm, dry, intact and normal color Medical Decision Making Medical Records Medical records reviewed: No I reviewed the patient's medical records. Bassem Inquiry Pt receiving controlled substance: No Vital Signs: 09/25/23 10:45 Temperature 98.7 F Temperature Source Oral Pulse Rate [Right Radial] 68 Respiratory Rate 18 Blood Pressure [Right Arm] 130/85 Blood Pressure Mean [Right Arm] 100 Blood Pressure Source [Right Arm] Automatic Cuff Blood Pressure Position [Right Arm] Sitting 02 Sat by Pulse Oximetry 96 Oxygen Delivery Method Room Air Lab Data Lab results reviewed: Yes I reviewed the patient's lab results. Lab Results 09/25/23 10:35: Strep Scn Rapid Clinic Negative Orders (Tests/Meds): ORDERS Category Date Time Status Strep Screen Confirmation Stat Micro 09/25/23 10:35 Received
[2023-09-25 11:29] VITALS: BP 130/85; PULSE 68; RESP 18; TEMP 37.1; O2SAT 96
== END 2023-09-25 11:29 | disposition home or self-care (01) ==
PROVIDERS: Emergency Provider Nurse Practitioner Family; PCP Physician Assistant
DX: J02.9 Acute pharyngitis, unspecified (principal); R05.9 Cough, unspecified; R09.81 Nasal congestion; R53.81 Other malaise; Z87.891 Personal history of nicotine dependence
CPT/HCPCS: 87880; 99212; 99214; G0463

== ENCOUNTER 2023-10-13 18:01 | Emergency (ER) | payer OTHER, BC, SELFPAY ==
[2023-10-13 18:10] VITALS: BP 134/84; PULSE 71; RESP 19; TEMP 36.8; O2SAT 99; BMI 35.2
--- NOTE | 2023-10-13 18:12 | XR_ITS ---
PROCEDURE INFORMATION: Exam: XR Left Ribs with PA Chest Exam date and time: 10/13/2023 6:11 PM Age: 48 years old Clinical indication: Other: Left lateral rib pain; Additional info: [place]man a pop in ribs after coughing TECHNIQUE: Imaging protocol: Radiologic exam of the left ribs with PA chest. Views: 3 views COMPARISON: No relevant prior studies available. FINDINGS: Lungs: Unremarkable. No consolidation. Pleural spaces: Unremarkable. No pleural effusion. No pneumothorax. Heart/Mediastinum: Unremarkable. No cardiomegaly. Bones/joints: No displaced rib fracture. Intraperitoneal space: Right upper quadrant surgical clips. IMPRESSION: 1. No acute pulmonary findings. 2. No displaced rib fracture.
--- NOTE | 2023-10-13 18:19 | EXP.UTC ---
Discharge Plan Disposition Patient Disposition: Home, Self-Care Condition: Good Prescriptions Prescriptions: New ibuprofen [IBU] 800 mg tablet 800 mg PO TIDP PRN (Reason: Moderate Pain) Qty: 20 0RF methocarbamol 500 mg tablet 500 mg PO TID PRN (Reason: muscle spasm) Qty: 15 0RF Referrals Follow up/Referrals: Karen Barr [Primary Care Provider] - See instructions Activity Restrictions/Add. Instructions Additional Instructions/Restrictions: *Ibuprofen kaushik 6 hours with meal as needed for pain/inflammation *Not additional anti-inflammatory like motrin, aleve, advil with the above amount of ibuprofen. You can still take Tylenol every 4 hours as needed if you need something else for pain *Ice 20 minutes every 2 hours for the first 48 hours after the initial injury followed by moist heat every 20 minutes 3-4 times a day to affected area *Muscle relaxer every 8 hours as needed for muscle spasms but remember, it WILL cause drowsiness You cannot take it and drive, operate machinery Work or care for small children. *Keep this area active, no movement leads to more stiffness, However take it easy and avoid heavy lifting pushing or pulling *Follow up with you family doctor if no improvement for further treatment Clinical Impressions Clinical Impression: Muscle spasm Stand Alone Forms Stand Alone Forms: Work/School Release Instructions Patient Instructions: DI for Muscle Spasm, Methocarbamol, Ibuprofen Discharge ED Provider: Abbey Jin [facility] General Stated complaint: back pain, swelling lower back/abd Mode of Arrival: Ambulatory Source of Information: Patient Limitations: No Limitations Time Seen by Provider: 10/13/23 18:19 Description of Symptoms (Recalled from Triage Doc. by RN): PATIENT C/O LEFT SIDE/RIB AREA PAIN THAT STARTED AFTER HE SNEEZED YESTERDAY AND FELT A POP HEENT Symptoms (Recalled from RN notes): No Resp Symptoms (Recalled from RN notes): No Skin Symptoms (Recalled from RN notes): No MS Symptoms (Recalled from RN notes): Yes Functional Status (Recalled from RN notes): WNL History of Present Illness Provider Complaint: Patient states that yesterday he sneezed very hard and felt a pop in his left side of back around his rib area and has been having pain ever since that is worse with movement and deep breath States today it was still hurting him and the pain will radiate around his left side at times with certain movements or cough Related Data Previous Rx's Medication Instructions Recorded ibuprofen 800 mg tablet (IBU) 800 mg PO TIDP PRN Moderate Pain 10/13/23 #20 tabs methocarbamol 500 mg tablet 500 mg PO TID PRN muscle spasm #15 10/13/23 tabs Allergies Allergy/AdvReac Type Severity Reaction Status Date / Time No Known Allergies Allergy Verified 09/25/23 10:53 Worker's Comp Is this a Worker's Comp case?: No PFSH [facility] Disclaimer: The information contained in this section may have been updated after the patient was seen, as this information can be updated by other users. Social History Smoking Status: Former smoker tobacco type: smokeless tobacco second hand exposure: Yes alcohol intake: never current occupational status: other Travel in the last 8 weeks: None ROS Obtained: Yes All systems reviewed & no additional complaints except as documented and Yes Systems reviewed as appropriate & no additional complaints except as documented Constitutional Constitutional: Reports system reviewed and no additional complaints, except as documented and Reports as per HPI ENT Ears, Nose, Mouth, and Throat: Reports system reviewed and no additional complaints, except as documented and Reports as per HPI Cardiovascular Cardiovascular: Reports system reviewed and no additional complaints, except as documented and Reports as per HPI Respiratory Respiratory: Reports system reviewed and no additional complaints, except as documented, Reports as per HPI, Denies shortness of breath, Reports pain on inspiration and Reports pain with cough Gastrointestinal Gastrointestingal: Reports system reviewed and no additional complaints, except as documented and as per HPI Musculoskeletal Musculoskeletal: Reports system reviewed and no additional complaints, except as documented, Reports as per HPI and Reports other Comments: Pain in left back/rib area since yesterday after feeling a pop when he sneezed very hard Denies SOA Physical Exam General General appearance: alert and in no apparent distress ENT ENT exam: Present mucous membranes moist Chest Chest inspection: Present tenderness Expanded Chest Exam Male Torso: 1. reports tenderness with palpation no swelling no bruising noted pain worse with movement and cough Respiratory Respiratory exam: Present normal lung sounds bilaterally; Absent respiratory distress or wheezes Cardiovascular Cardiovascular exam: Present regular rate, normal rhythm and normal heart sounds Abdominal Exam Abdominal exam: Present soft and normal bowel sounds; Absent distention, tenderness, guarding, rebound or rigidity Back Exam Back exam: Present tenderness Back 1 view image: 1. reports tenderness after feeling a pop yesterday when he sneezed Denies any known injury reports pain worse with breathing, movement or cough no bruising no swelling noted States at times pain does move around side with certain movements Neurological Exam Neurological exam: Present alert, oriented X3 and normal gait Medical Decision Making Bassem Inquiry Pt receiving controlled substance: No Bassem was queried for this patient: No Vital Signs: 10/13/23 18:10 Temperature 98.3 F Temperature Source Oral Pulse Rate [Left Brachial] 71 Respiratory Rate 19 Blood Pressure [Left Arm] 134/84 Blood Pressure Mean [Left Arm] 100 Blood Pressure Source [Left Arm] Automatic Cuff Blood Pressure Position [Left Arm] Sitting 02 Sat by Pulse Oximetry 99 Oxygen Delivery Method Room Air Orders (Tests/Meds): ORDERS Category Date Time Status XR ribs LT min 3V w CXR1V Stat Exams 10/13/23 18:12 Ordered Radiology Data #1: Image(s): Chest (with left ribs) Image Reviewed: Yes I have reviewed radiologist's interpretation FINDINGS: Lungs: Unremarkable. No consolidation. Pleural spaces: Unremarkable. No pleural effusion. No pneumothorax. Heart/Mediastinum: Unremarkable. No cardiomegaly. Bones/joints: No displaced rib fracture. Intraperitoneal space: Right upper quadrant surgical clips.
[2023-10-13] MEDS: METHOCARBAMOL 500MG TABLET 500 MG PO (19:11)
[2023-10-13] MEDS: IBUPROFEN 600 MG TABLET PO (19:11)
[2023-10-13 19:12] VITALS: BP 134/84; PULSE 71; RESP 19; TEMP 36.8; O2SAT 99
== END 2023-10-13 19:13 | disposition home or self-care (01) ==
PROVIDERS: Emergency Provider Nurse Practitioner; PCP Nurse Practitioner Family
DX: R07.1 Chest pain on breathing (principal); M62.838 Other muscle spasm
CPT/HCPCS: 71101; 99212; 99214; G0463

== ENCOUNTER 2024-11-26 07:40 | Day surgery (SDC) | payer BC, SELFPAY ==
--- NOTE | 2024-11-23 12:32 | SUR.PREOP ---
1231: Message left with call back number and arrival time.
[2024-11-25 09:25] VITALS: BMI 33.6
[2024-11-26] MEDS: LACTATED RINGERS 1000ML 1,000 ML 50 ML IV (08:50)
[2024-11-26 08:51] VITALS: BP 121/76; PULSE 61; RESP 18; TEMP 36.6; O2SAT 94
--- NOTE | 2024-11-26 09:12 | P.PNANES_ITS ---
[facility] Disclaimer: The information contained in this section may have been updated after the patient was seen, as this information can be updated by other users. Medical History Sleep apnea Hyperlipidemia Surgical History History of cholecystectomy Family History Other No significant family history Social History Smoking Status: Former smoker tobacco type: smokeless tobacco second hand exposure: Yes alcohol intake: former substance use type: former substance user current occupational status: employed Travel in the last 8 weeks: None [facility] Anesthesia Checklist Patient Identification Patient Identification: Arm Band Structural Data Admitted From: Home Planned Operative Procedure/s: Colonoscopy Consent for Planned Operative Procedure(s) Verified: Yes Verified Documents: Surgical Consent and History and Physical NPO Status Verified Time NPO: 00:00 Additional verifications Anesthesia Reactions: No Airway Assessment Mallampati Score:: Class II C-Spine Mobility Assessed: Yes TMJ Mobility Assessed: Yes Dentition: Good Dentition Neurological Assessment Level of Consciousness: Awake, Alert and Appropriate Anesthesia Plan Anesthesia Risk discussed: Yes Anesthesia Plan: Verified ASA Class: II Anesthesia Type: MAC
--- NOTE | 2024-11-26 09:15 | P.HP_ITS ---
History of Present Illness *Admission Date: 11/26/24 *Reason for visit:: Screening for colon cancer *History of present illness: Mr. Tinsley is a 49-year-old gentleman who is here for screening colonoscopy. The examination is deemed medically necessary for screening colonoscopy. The patien t has been seen, interviewed and examined prior to the procedure by both myself and the anesthesia provider. [facility] Disclaimer: The information contained in this section may have been updated after the patient was seen, as this information can be updated by other users. Medical History (Updated 11/26/24 @ 09:25 by Israel Stanley II, MD) Sleep apnea Hyperlipidemia Surgical History History of cholecystectomy Family History Other No significant family history Social History (Updated 11/26/24 @ 09:13 by Renaldo Duffy CRNA) Smoking Status: Former smoker tobacco type: smokeless tobacco second hand exposure: Yes alcohol intake: former substance use type: former substance user current occupational status: employed Travel in the last 8 weeks: None Have you lived/traveled outside [place] in past 30 days?: No Contact w/someone who lives/traveled outside US past 30 days?: No Exposure to someone with infectious disease in past 14 days?: No Do you have a fever (greater than 100.4 F or 38 C)?: No Have you tested positive for COVID-19: No Exposed to someone with COVID-19 in past 14 days?: No Do you have a sore throat?: No Do you have a cough?: No Do you have any weakness?: No Do you have any diarrhea?: No Are you experiencing any unusual bleeding?: No Do you have any muscle aches/pain?: No Do you have any abdominal pain?: No Are you experiencing loss of taste or smell?: No Other Medical History Have you received the Flu Vaccine for this season: Yes Have you received the Pneumonia Vaccine: No Review of Systems Review of Systems Review of systems (narrative): Negative *Cardiovascular Comments: Negative *Gastrointestinal Comments: Negative *Genitourinary Comments: Negative *Musculoskeletal Comments: Negative *Neurologic Comments: Negative Meds Home Medications and Allergies Home Medications ?Medication ?Instructions ?Recorded ?Confirmed ?Type bupropion HCl 300 mg 24 hr tablet, 300 mg PO DAILY 11/25/24 11/26/24 History extended release (Wellbutrin XL) New Prescriptions to Start Prescriptions: Allergies Allergy/AdvReac Type Severity Reaction Status Date / Time No Known Allergies Allergy Verified 09/25/23 10:53 Exam Data for Last 24 hours Vital signs and Labs for Last 24 Hours: Temp Pulse Resp BP Pulse Ox O2 Del Method 97.9 F 61 18 121/76 94 L Room Air 11/26/24 08:51 11/26/24 08:51 11/26/24 08:51 11/26/24 08:51 11/26/24 08:51 11/26/24 08:51 I & O for Last 24 hours: Intake & Output 11/23/24 11/24/24 11/25/24 11/26/24 23:59 23:59 23:59 23:59 Weight 248 lb *Routine HEENT Exam Head: Present normocephalic Eye: Present EOMI and PERRL ENT: Present mucous membranes moist *Routine Neck Exam Neck: Present supple *Routine Respiratory Exam Respiratory: Present CTA bilaterally *Routine Cardiovascular Exam Cardiovascular: Present RRR *Routine Abdominal Exam Abdominal: Present soft and normoactive bowel sounds; Absent tenderness *Routine Rectal Exam Rectal:: deferred *Routine Genitalia Exam Genitalia:: deferred *Routine Extremities Exam Extremities: Absent cyanosis, clubbing or edema *Routine Skin Exam Skin: Present warm; Absent rash *Routine Neurological Exam Neurological: Present alert and oriented X3 Assessment and Plan *Assessment and plan (1) Screening for colon cancer: Status: Acute Category: Medical Code(s): Z12.11 - Encounter for screening for malignant neoplasm of colon Plan A/P: 1. Screening for colon cancer is the preprocedural diagnosis. The patient will be anesthetized/sedated using MAC sedation. The patient has been seen and examined. Cardiac and lung assessment prior to the examination is stable. Proceed with planned screening colonoscopy
[2024-11-26 09:20] VITALS: O2SAT 96
--- NOTE | 2024-11-26 09:25 | HMH.PROCNOTE ---
[facility] Procedure Note Date: 11/26/24 Time: 09:49 Procedure Note:: Colonoscopy Procedure Report: Colonoscopy with cold snare polypectomy Endoscopist: Israel Stanley II, MD Referring physician: LAKIA Pulido, [address], [place] [address] Date of Procedure: November 26, 2024 Equipment: Olympus 190 variable stiffness pediatric colonoscope Sedation: MAC sedation Indication: Mr. Tinsley is a 49-year-old gentleman who is here for initial screening colonoscopy. He reports no abdominal pain, weight loss, change in his bowel habits or rectal bleeding. He reports no family history of colon cancer. Procedure: Prior to the procedure, a history and physical exam was performed, and patient's medications and allergies were reviewed. The risks, benefits and alternatives of the sedation and procedure were discussed with the patient. All questions were answered and informed consent was obtained. The patient was brought to the procedure room. Patient identification and proposed procedure were verified by the physician and the nurse. The patient was placed in a left lateral decubitus position and the scope was passed under direct vision. Throughout the procedure, the patient's blood pressure, pulse, and oxygen saturations were monitored continuously. The colonoscopy was accomplished without difficulty. The patient tolerated the procedure well. Findings: On digital rectal examination there was normal rectal tone. There were no external hemorrhoids. The colonoscope was introduced through the anal canal to the rectum and advanced to the cecum. The ileocecal valve and appendiceal orifice were identified. The scope was advanced a short distance into the ileum which appeared grossly normal. The scope was then withdrawn into the colon. There were 2 polyps (sigmoid x 1 (5 mm) and rectum x 1 (3 mm)). Both of these were removed via cold snare polypectomy. The remaining cecum, ascending, transverse, descending, sigmoid and rectum were grossly normal. There were no other mucosal abnormalities identified. Upon retroflexion within the rectum there were grade 1-2 internal hemorrhoids. The preparation was fair to good throughout with [place] Preparation Score of 7 out of 9. The cecal time was 12 minutes. Impression: 1. Diminutive colonic polyps x 2 2. Grade 1-2 internal hemorrhoids Plan: I will follow-up the polyp histology and recommend repeat surveillance colonoscopy again in 7 to 10 years based upon the pathology. I would encourage psyllium bulking fiber supplementation on a maintenance basis.
[2024-11-26 09:55] VITALS: BP 114/73; PULSE 59; RESP 16; TEMP 36.3; O2SAT 92
[2024-11-26 10:05] VITALS: BP 117/76; PULSE 59; RESP 16; O2SAT 98
[2024-11-26 10:15] VITALS: BP 120/75; PULSE 52; RESP 16; O2SAT 99
[2024-11-26 10:25] VITALS: BP 121/79; PULSE 56; RESP 16; O2SAT 99
== END 2024-11-26 10:26 | disposition home or self-care (01) ==
PROVIDERS: PCP Nurse Practitioner Family; Visit Provider Internal Medicine Gastroenterology
PROC: 0DJD8ZZ Inspection of Lower Intestinal Tract, Via Natural or Artificial Opening Endoscopic (ICD-10-PCS; CPT 45378; principal; 2024-11-26 09:30)
DX: K63.5 Polyp of colon (principal); K64.8 Other hemorrhoids; Z12.11 Encounter for screening for malignant neoplasm of colon
CPT/HCPCS: 45385; J7120